=== PATIENT | female | born 1995 | race African-American/Black ===

== ENCOUNTER 2019-09-26 20:12 | Emergency (ER) | payer OTHER ==
[~2019-09-26] VITALS: Ht 160 cm; Wt 89.4 kg
[2019-09-26] MEDS ORDERED: CLARITIN10 MG PO (22:27)
[2019-09-26] MEDS ORDERED: TUSNEL LIQUID178 ML PO (22:27)
== END 2019-09-26 22:45 | disposition home or self-care (01) ==
LOC: ER 20:12
DX: B34.9 Viral infection, unspecified (principal)

== ENCOUNTER 2020-03-22 11:14 | Emergency (ER) | payer OTHER ==
[~2020-03-22] VITALS: Ht 160 cm; Wt 68.0 kg
[~2020-03-22 11:14] MED LIST: CLARITIN10 MG PO; TUSNEL LIQUID178 ML PO
== END 2020-03-22 14:03 | disposition home or self-care (01) ==
LOC: ER 11:14
DX: B34.9 Viral infection, unspecified (principal); Z03.818 Encounter for observation for suspected exposure to other biological agents ruled out; R07.0 Pain in throat; R09.81 Nasal congestion

== ENCOUNTER 2020-07-13 21:36 | Emergency (ER) | payer OTHER ==
[~2020-07-13] VITALS: Ht 160 cm; Wt 86.2 kg
[2020-07-13] MEDS ORDERED: [UNRECOGNIZED DRUG - OTHER] (22:00)
[2020-07-13] MEDS ORDERED: ADIPEX (22:01)
[2020-07-14] MEDS ORDERED: GUAIFENESIN200 MG PO (04:03)
[2020-07-14] MEDS ORDERED: VITAMIN C1000 MG PO (04:03)
[2020-07-14] MEDS ORDERED: ACETAMINOPHEN650 M2 PO (04:03)
== END 2020-07-14 04:21 | disposition home or self-care (01) ==
LOC: ER 21:36
DX: B34.9 Viral infection, unspecified (principal); J06.9 Acute upper respiratory infection, unspecified; Z03.818 Encounter for observation for suspected exposure to other biological agents ruled out

== ENCOUNTER 2021-05-22 23:00 | Emergency (ER) | payer OTHER ==
[~2021-05-22] VITALS: Ht 160 cm; Wt 90.7 kg
[~2021-05-22 23:00] MED LIST changes: +ACETAMINOPHEN650 M2 PO; +ADIPEX; +GUAIFENESIN200 MG PO; +VITAMIN C1000 MG PO; +[UNRECOGNIZED DRUG - OTHER]
[2021-05-23] MEDS ORDERED: ZITHROMAX500 MG PO (03:56)
[2021-05-23] MEDS ORDERED: ALBUTEROL2.5 MG/3 M IH (03:56)
[2021-05-23] MEDS ORDERED: ZYNCOF 20-400120 ML PO (03:56)
[2021-05-23] MEDS ORDERED: SYMBICORT 16010.2 GM IH (03:56)
== END 2021-05-23 04:25 ==
LOC: ER 23:00
DX: J40 Bronchitis, not specified as acute or chronic (principal); R05 Cough; R50.9 Fever, unspecified

== ENCOUNTER → 2023-02-12 | Emergency (ER) | payer OTHER ==
[~2023-02-12] VITALS: Ht 160 cm; Wt 102.1 kg
[~2023-02-12] MED LIST changes: +ALBUTEROL2.5 MG/3 M IH; +NORFLEX100MG PO; +SYMBICORT 16010.2 GM IH; +ZITHROMAX500 MG PO; +ZYNCOF 20-400120 ML PO; +ZYRTEC10 M3 PO
== END | disposition home or self-care (01) ==
LOC: ER 20:52
DX: R53.81 Other malaise (principal); R05.9 Cough, unspecified; Z20.822 Contact with and (suspected) exposure to COVID-19

== ENCOUNTER 2023-06-21 18:36 | Emergency (ER) | payer OTHER ==
[~2023-06-21] VITALS: Ht 160 cm; Wt 98.0 kg
[~2023-06-21 18:36] MED LIST changes: +DICLOFENAC SODI75 MG PO
[2023-06-21] MEDS ORDERED: CLARITIN10 M1 PO (18:39)
== END 2023-06-21 21:47 | disposition home or self-care (01) ==
LOC: ER 18:36
DX: J06.9 Acute upper respiratory infection, unspecified (principal); Z20.822 Contact with and (suspected) exposure to COVID-19

== ENCOUNTER 2023-06-24 17:44 | Emergency (ER) | payer OTHER ==
[~2023-06-24] VITALS: Ht 160 cm; Wt 98.9 kg
[~2023-06-24 17:44] MED LIST changes: +CLARITIN10 M1 PO
[2023-06-24 19:44] LABS: CREATININE SERUM 0.76 mg/dL (0.55-1.02); GFR 91.29; POTASSIUM 3.41 mEq/L (3.5-5.1)
== END 2023-06-24 20:45 | disposition home or self-care (01) ==
LOC: ER 17:44
PROVIDERS: General Practice
DX: R11.10 Vomiting, unspecified (principal); M54.9 Dorsalgia, unspecified

== ENCOUNTER 2023-09-29 19:37 | Emergency (ER) | payer OTHER ==
[~2023-09-29] VITALS: Ht 160 cm; Wt 99.8 kg
[2023-09-29 21:27] LABS: HEMOGLOBIN 10.5 g/dL (12.0-15.00); MEAN CORPUSCULAR HEMOGLOBIN 22.5 pg (27.00-32.0); MEAN CORPUSCULAR HGB CONC 32.9 g/dl (32.0-36.0); PLATELET COUNT 246 K/uL (150-450); RED BLOOD COUNT 4.67 M/uL (4.00-6.00); RED CELL DISTRIBUTION WIDTH 15.1 % (11.5-14.5)
[2023-09-29 21:28] LABS: MEAN CELL VOLUME 68.4 fL (80.00-100.00)
[2023-09-29] MEDS ORDERED: ZYRTEC10 MG PO (22:07)
[2023-09-29] MEDS ORDERED: BUDESONIDE0.5 MG/21 IH (22:07)
[2023-09-29] MEDS ORDERED: SINGULAIR10 MG PO (22:07)
[2023-09-29] MEDS ORDERED: TUSSIN DM SYRU118 ML PO (22:07)
== END 2023-09-29 22:50 ==
LOC: ER 19:38
PROVIDERS: Nurse Practitioner Family
DX: J00 Acute nasopharyngitis [common cold] (principal); Z20.822 Contact with and (suspected) exposure to COVID-19

== ENCOUNTER 2023-12-05 11:29 | Emergency (ER) | payer OTHER ==
[~2023-12-05] VITALS: Ht 160 cm; Wt 98.9 kg
[~2023-12-05 11:29] MED LIST changes: +BUDESONIDE0.5 MG/21 IH; +SINGULAIR10 MG PO; +TUSSIN DM SYRU118 ML PO; +ZYRTEC10 MG PO
[2023-12-05] MEDS ORDERED: GUAIFENESIN/DEXTROMETHORPHAN 100 MG/5 ML ML PO ONE (14:15)
[2023-12-05 15:50] LABS: HEMOGLOBIN 11.3 g/dL (12.0-15.00); MEAN CORPUSCULAR HEMOGLOBIN 21.7 pg (27.00-32.0); MEAN CORPUSCULAR HGB CONC 33.2 g/dl (32.0-36.0); PLATELET COUNT 236 K/uL (150-450); RED BLOOD COUNT 5.21 M/uL (4.00-6.00); RED CELL DISTRIBUTION WIDTH 16.2 % (11.5-14.5)
[2023-12-05 15:51] LABS: MEAN CELL VOLUME 65.4 fL (80.00-100.00)
[2023-12-05] MEDS ORDERED: CEFTRIAXONE SODIUM 1,000 MG VIAL IM ONE (16:30)
== END 2023-12-05 16:33 | disposition home or self-care (01) ==
LOC: ER 11:29
PROVIDERS: General Practice
DX: J03.80 Acute tonsillitis due to other specified organisms (principal); B34.9 Viral infection, unspecified; D64.9 Anemia, unspecified

== ENCOUNTER 2024-04-28 16:31 | Emergency (ER) | payer OTHER ==
[~2024-04-28] VITALS: Ht 160 cm; Wt 103.0 kg
[2024-04-28 18:39] LABS: HEMATOCRIT 33.2 % (36.0-45.00); HEMOGLOBIN 10.6 g/dL (12.0-15.00); MEAN CORPUSCULAR HEMOGLOBIN 20.3 pg (27.00-32.0); PLATELET COUNT 303 K/uL (150-450); RED BLOOD COUNT 5.23 M/uL (4.00-6.00); RED CELL DISTRIBUTION WIDTH 16.6 % (11.5-14.5)
[2024-04-28 18:40] LABS: MEAN CELL VOLUME 63.4 fL (80.00-100.00)
[2024-04-28 19:08] LABS: CALCIUM 9.5 mg/dL (8.5-10.1); CREATININE SERUM 0.62 mg/dL (0.55-1.02); GFR 115.46; POTASSIUM 3.83 mEq/L (3.5-5.1)
[2024-04-28] MEDS ORDERED: GUAIFENESIN/DEXTROMETHORPHAN 10ML BLIST.PACK PO ONE ×2 (20:59→21:00)
== END 2024-04-28 21:04 | disposition home or self-care (01) ==
LOC: ER 16:33
PROVIDERS: Emergency Medicine
DX: J00 Acute nasopharyngitis [common cold] (principal); B34.9 Viral infection, unspecified

== ENCOUNTER 2025-04-11 22:05 | Emergency (ER) | payer OTHER ==
[~2025-04-11] VITALS: Ht 162.6 cm; Wt 104.3 kg
[2025-04-12] MEDS ORDERED: DIPHENHYDRAMINE HCL 12.5 MG/5 ML BLIST.PACK PO STA (00:38)
[2025-04-12] MEDS ORDERED: GUAIFENESIN 200 MG/10 ML BLIST.PACK PO STA (00:38)
[2025-04-12] MEDS ORDERED: ACETAMINOPHEN 500 MG GEL..CAP PO STA (00:38)
[2025-04-12 01:32] LABS: BASO % 0.5 % (0.1-1.2); EOS # 0.13 (0.04-0.54); EOS % 2.2 % (0.7-7.0); LYMPH # 2.43 (1.18-3.74); LYMPH % 40.8 % (19.3-53.1); MEAN PLATELET VOLUME 10.20 fl (9.4-12.4); MONO # 0.61 (0.24-0.82); MONO % 10.2 % (4.7-12.5); NEUT # 2.75 (1.56-6.13); NEUT % 46.1 % (34.0-71.1); RED CELL DISTRIBUTION WIDTH 16.1 % (11.6-14.4)
[2025-04-12 01:58] LABS: COVID-19 AG NEGATIVE (NEGATIVE)
[2025-04-12] MEDS ORDERED: LEVALBUTER0.63 MG/3 IH (03:13)
[2025-04-12] MEDS ORDERED: PHENAGIL TABLE1 EACH PO (03:13)
== END 2025-04-12 03:21 ==
LOC: ER 22:05
PROVIDERS: General Practice
DX: B34.9 Viral infection, unspecified (principal); R50.9 Fever, unspecified; R05.8 Other specified cough; Z20.822 Contact with and (suspected) exposure to COVID-19